=== PATIENT | female | born 1985 | race Caucasian/White ===

== ENCOUNTER 2018-05-04 19:22 | Emergency (ER) | payer BC, OTHER ==
[~2018-05-04] VITALS: Ht 162.6 cm; Wt 111.4 kg
[2018-05-04 20:16] LABS: HEMATOCRIT 41.7 % (36.0-47.0); HEMOGLOBIN 13.7 g/dl (12.0-15.5); MEAN CORPUSCULAR HEMOGLOBIN 28.5 pg (27.0-33.0); MEAN CORPUSCULAR HGB CONC 32.9 g/dl (32.0-36.5); MEAN CORPUSCULAR VOLUME 86.9 fl (80.0-96.0); PLATELET COUNT, AUTOMATED 238 10^3/uL (150-450)
[2018-05-04 20:40] LABS: ALBUMIN 3.8 GM/DL (3.2-5.2); ALT/SGPT 17 U/L (12-78); BILIRUBIN,TOTAL 0.2 MG/DL (0.2-1.0); BLOOD UREA NITROGEN 6 MG/DL (7-18); CALCIUM LEVEL 8.2 MG/DL (8.5-10.1); CARBON DIOXIDE LEVEL 27 MEQ/L (21-32); CHLORIDE LEVEL 107 MEQ/L (98-107); CREATININE FOR GFR 0.68 MG/DL (0.55-1.30); GLOMERULAR FILTRATION RATE > 60.0 (>60); GLUCOSE, FASTING 102 MG/DL (70-100); POTASSIUM SERUM 3.3 MEQ/L (3.5-5.1); SODIUM LEVEL 141 MEQ/L (136-145)
[2018-05-04] MEDS ORDERED: POTASSIUM CHLORIDE 10 MEQ SR TABLET PO ONE (21:00)
[2018-05-04] MEDS ORDERED: NS 1,000 ML IV SCH (21:00)
[2018-05-04] MEDS ORDERED: LOPERAMIDE 2 MG CAP PO ONE (21:15)
[2018-05-04] MEDS ORDERED: SIMETHICONE 80 MG CHEW TAB PO ONE (22:00)
[2018-05-04] MEDS ORDERED: ONDANSETRON 4MG/2ML VIAL (J2405) IV ONE (22:45)
[2018-05-04] MEDS ORDERED: KETOROLAC 30 MG/ML VIAL (J1885) IV ONE (22:45)
[2018-05-04] MEDS ORDERED: ISOVUE-370 76% 100ML VIAL (Q9967) As Ordered ONE (22:48)
[2018-05-04] MEDS: GASTROGRAFIN SOLUTION 30ML PO SCH ×2 (22:57→23:35)
[2018-05-04] MEDS ORDERED: FLAG500T PO (23:44)
[2018-05-04] MEDS ORDERED: OXYC1TAB23 PO (23:44)
[2018-05-04] MEDS ORDERED: CIPR-249 PO (23:44)
[2018-05-04] MEDS ORDERED: CIPROFLOXACIN 500 MG TAB PO ONE (23:45)
[2018-05-04] MEDS ORDERED: metroNIDAZOLE (FLAGYL) 500 MG TAB PO ONE (23:45)
--- NOTE | 2018-05-05 00:04 | REPVR ---
EXAM: CT Abdomen and Pelvis With Contrast EXAM DATE/TIME: 05/04/2018 10:38 PM CLINICAL HISTORY: 32 years old, female; Pain; Abdominal pain; Generalized TECHNIQUE: Axial computed tomography images of the abdomen and pelvis with intravenous contrast. All CT scans at this facility use at least one of these dose optimization techniques: automated exposure control; mA and/or kV adjustment per patient size (includes targeted exams where dose is matched to clinical indication); or iterative reconstruction. Coronal and sagittal reformatted images were created and reviewed. CONTRAST: 100 ml of iso administered intravenously. COMPARISON: CR Abdomen,Flat Plate KUB 05/04/2018 9:44 PM FINDINGS: Lower thorax: No acute findings. ABDOMEN: Liver: Normal. No mass. Gallbladder and bile ducts: Multiple gallstones neck of the gallbladder. No gallbladder wall thickening.No biliary ductal dilatation. Pancreas: Normal. No ductal dilation. Spleen: Normal. No splenomegaly. Adrenals: Normal. No mass. Kidneys and ureters: No hydronephrosis. Nonobstructive stone in the midpole right kidney measuring 3 mm. Stomach and bowel: Severe diffuse thickening of the colon from the proximal ascending colon to the distal descending colon. There is sparing of the cecum sigmoid colon and rectum. There is associated pericolonic haziness. No abnormal bowel dilatation. Appendix: Appendix is normal. PELVIS: Bladder: Unremarkable as visualized. Reproductive: Uterus is normal. ABDOMEN and PELVIS: Intraperitoneal space: Normal. No free air. No significant fluid collection. Bones/joints: Mild degenerative spine. Multiple benign bone islands in the proximal femur bilaterally. No acute fracture. Osteitis condensans ilii. Soft tissues: Unremarkable. Vasculature: Normal. No abdominal aortic aneurysm. Lymph nodes: Multiple small mesenteric nodes. IMPRESSION: Severe diffuse thickening of the colon from the proximal ascending colon to the distal descending colon. Suspicious for infectious colitis. Differential diagnosis also includes inflammatory and ischemic colitis. Cholelithiasis without evidence of acute cholecystitis. Additional findings as described. Electronically signed by: Dutch Potter On 05/05/2018 00:03:36 AM
[2018-05-05 00:29] VITALS: BP 143/80
--- NOTE | 2018-05-05 09:04 | REP ---
SUPINE ABDOMEN: 05/04/2018. CLINICAL HISTORY: Abdominal pain, unspecified. FINDINGS: No comparison study. Two views were provided. The gas pattern is nonspecific with scattered stool and gas in the colon and no dilatation. Most small bowel loops are fluid filled. No abnormal soft tissue calcifications. Bones intact. IMPRESSION: 1. Negative supine abdomen. No abnormal calcifications, masses, abnormal gas pattern, or acute bony finding. Electronically Signed by Ajay Marquis MD 05/05/2018 09:31 A
--- NOTE | 2018-05-14 20:13 | ED PDOC ---
Post-Departure Follow-Up dr ragsdale faxed formal report of ct abd/p for fu Johnnie Tim MD May 14, 2018 20:13
== END 2018-05-05 00:30 | disposition home or self-care (01) ==
LOC: M ED 19:22
DX: K52.9 Noninfective gastroenteritis and colitis, unspecified (principal); K80.20 Calculus of gallbladder without cholecystitis without obstruction
CPT/HCPCS: 74018; 74177; 80053; 81001; 83630; 85027; 87507; 96361; 96374; 96375; 99283; J1885; J2405; Q9963; Q9967

== ENCOUNTER → 2023-08-09 | Outpatient (REF) | payer OTHER ==
[~2023-08-09] MED LIST: CIPR-249 PO; FLAG500T PO; OXYC1TAB23 PO
[2023-08-09 18:38] LABS: HEMOGLOBIN A1c 5.2 % (4.0-6.0)
[2023-08-09 18:45] LABS: ALBUMIN 3.6 G/DL (3.2-5.2); ALKALINE PHOSPHATASE 58 U/L (46-116); ALT/SGPT 27 U/L (7.0-40); AST/SGOT 11 U/L (<34); BILIRUBIN,TOTAL 0.4 MG/DL (0.3-1.2); BLOOD UREA NITROGEN 10 MG/DL (9-23); CALCIUM LEVEL 8.9 MG/DL (8.5-10.1); CARBON DIOXIDE LEVEL 26 MMOL/L (20-31); CHLORIDE LEVEL 109 MMOL/L (98-107); CHOLESTEROL LEVEL 131 MG/DL (<200); CHOLESTEROL RISK RATIO 3.35 (<5); CREATININE FOR GFR 0.65 MG/DL (0.55-1.30); GLOMERULAR FILTRATION RATE > 60.0 (>60); GLUCOSE, FASTING 102 MG/DL (60-100); HDL CHOLESTEROL 39.1 MG/DL (>40); LDL CHOLESTEROL 64.1 MG/DL (<100); NON-HDL-C 91.9 MG/DL; POTASSIUM SERUM 3.7 MMOL/L (3.5-5.1); SODIUM LEVEL 143 MMOL/L (136-145); TOTAL PROTEIN 6.8 G/DL (5.7-8.2); TRIGLYCERIDES LEVEL 139 MG/DL (<150)
[2023-08-09 18:47] LABS: THYROID STIMULATING HORMONE 1.489 uIU/ML (0.55-4.78); TOTAL 25(OH) VITAMIN D 29.3 NG/ML (20.0-100.0)
== END ==
LOC: M LAB REF 16:24
PROVIDERS: ATTEND Physician Assistant
DX: E66.9 Obesity, unspecified (principal); E55.9 Vitamin D deficiency, unspecified

== ENCOUNTER → 2023-10-31 | Outpatient (REF) | payer OTHER ==
[2023-11-02 14:43] LABS: HPV APTIMA Not Detected (Not Detected)
== END ==
LOC: M LAB REF 13:27
PROVIDERS: ATTEND Physician Assistant
DX: Z12.4 Encounter for screening for malignant neoplasm of cervix (principal)

== ENCOUNTER → 2023-12-27 | Outpatient (CLI) | payer OTHER | LOC: M ADAMS 15:13 | PROVIDERS: ATTEND Physician Assistant | DX: R07.89 Other chest pain (principal) ==

== ENCOUNTER → 2024-02-14 | Outpatient (CLI) | payer OTHER | LOC: M WHC 07:38 | PROVIDERS: ATTEND Physician Assistant | DX: N61.0 Mastitis without abscess (principal) ==

== ENCOUNTER → 2024-04-23 | Outpatient (CLI) | payer OTHER | LOC: M ADAMS 11:19 | PROVIDERS: ATTEND Physician Assistant | DX: M54.50 Low back pain, unspecified (principal) ==

== ENCOUNTER → 2024-04-29 | Outpatient (CLI) | payer OTHER ==
[~2024-04-29] MED LIST changes: +ISOVUE-370 76% 100ML VIAL ONE
== END ==
LOC: M PLAIMG 10:14
PROVIDERS: ATTEND Physician Assistant
DX: K92.1 Melena (principal)

== ENCOUNTER → 2024-04-30 | Outpatient (REF) | payer OTHER ==
[~2024-04-30] MED LIST changes: -ISOVUE-370 76% 100ML VIAL ONE
[2024-05-01 14:02] LABS: BASO # 0.1 10^3/uL (0.0-0.2); EOS # 0.1 10^3/uL (0.0-0.5); EOS % 1.7 % (0.0-3.0); HEMATOCRIT 39.1 % (36.0-47.0); HEMOGLOBIN 12.5 g/dl (12.0-15.5); LYMPH # 2.8 10^3/uL (1.5-5.0); LYMPH % 33.3 % (24.0-44.0); MEAN CORPUSCULAR HEMOGLOBIN 26.6 pg (27.0-33.0); MEAN CORPUSCULAR VOLUME 83.2 fl (80.0-96.0); MONO # 0.7 10^3/uL (0.0-0.8); NEUTROPHILS # 4.5 10^3/uL (1.5-8.5); PLATELET COUNT, AUTOMATED 234 10^3/uL (150-450); WHITE BLOOD COUNT 8.3 10^3/uL (4.0-10.0)
[2024-05-01 14:18] LABS: ALBUMIN 4.1 G/DL (3.2-5.2); ALKALINE PHOSPHATASE 55 U/L (35-104); ALT/SGPT 14 U/L (7.0-40); AST/SGOT 10 U/L (<34); BILIRUBIN,TOTAL 0.3 MG/DL (0.3-1.2); BLOOD UREA NITROGEN 9 MG/DL (9-23); CALCIUM LEVEL 9.4 MG/DL (8.5-10.1); CARBON DIOXIDE LEVEL 24 MMOL/L (20-31); CHLORIDE LEVEL 106 MMOL/L (98-107); CREATININE FOR GFR 0.66 MG/DL (0.55-1.30); FERRITIN 8.7 NG/ML (7.3-270.7); GLOMERULAR FILTRATION RATE > 60.0 (>60); GLUCOSE, FASTING 85 MG/DL (60-100); IRON (FE) 78 UG/DL (50-170); PERCENT SATURATION 21.3 % (13.2-45.0); POTASSIUM SERUM 3.8 MMOL/L (3.5-5.1); SODIUM LEVEL 140 MMOL/L (136-145); TOTAL IRON BINDING CAPACITY 367 UG/DL (250-425); TOTAL PROTEIN 7.5 G/DL (5.7-8.2)
== END ==
LOC: M LAB REF 12:39
PROVIDERS: ATTEND Physician Assistant
DX: K92.1 Melena (principal)

== ENCOUNTER 2024-07-04 08:00 | Day surgery (SDC) | payer OTHER ==
[~2024-07-04] VITALS: Ht 162.6 cm; Wt 118.4 kg
[2024-07-04] MEDS ORDERED: LIDOCAINE 2% 100MG/5ML SDV (FOR ANES.) As Ordered ONE (09:23)
[2024-07-04] MEDS ORDERED: propofoL 200 MG/20 ML VIAL As Ordered ONE (09:23)
[2024-07-04 09:43] VITALS: TEMP 99.1
[2024-07-04 10:05] VITALS: BP 120/70; O2SAT 98
== END 2024-07-04 10:15 | disposition home or self-care (01) ==
LOC: M OPP 08:00
PROVIDERS: ATTEND Surgery
DX: K64.8 Other hemorrhoids (principal); K62.5 Hemorrhage of anus and rectum

== ENCOUNTER → 2024-10-23 | Outpatient (CLI) | payer OTHER | LOC: M WHC 08:14 | PROVIDERS: ATTEND Pediatrics | DX: N63.10 Unspecified lump in the right breast, unspecified quadrant (principal); R92.333 Mammographic heterogeneous density, bilateral breasts ==